=== PATIENT | male | born 1990 | race American Indian/Alaskan Native ===

== ENCOUNTER 2019-05-17 23:45 | Emergency (ER) | payer SELFPAY ==
[2019-05-18 00:48] LABS: Basophils % (Auto) 0.1 % (0.0-1.8); Eosinophils # (Auto) 0.2 K/mm3 (0.0-0.4); Eosinophils % (Auto) 2.8 % (0.0-4.3); Hematocrit 40.7 % (35.5-45.6); Hemoglobin 13.4 gm/dl (11.8-15.2); Lymphocytes # (Auto) 2.1 K/mm3 (1.2-5.4); Lymphocytes % (Auto) 36.6 % (13.4-35.0); Mean Corpuscular HGB Conc 33 % (32-34); Mean Corpuscular Volume 82 fl (84-94); Monocytes # (Auto) 0.6 K/mm3 (0.0-0.8); Monocytes % (Auto) 10.3 % (0.0-7.3); Platelet Count 300 K/mm3 (140-440); Red Blood Count 4.99 M/mm3 (3.65-5.03); Red Cell Distribution Width 14.7 % (13.2-15.2)
[2019-05-18 01:00] LABS: Bilirubin,Urine NEG (Negative); Blood,Urine NEG (Negative); Color,Urine Yellow (Yellow); Protein,Urine <15 mg/dL mg/dL (Negative); Urobilinogen,Urine < 2.0 mg/dL (<2.0)
[2019-05-18 01:03] LABS: Alanine Aminotransferase 24 units/L (7-56); Albumin 4.4 g/dL (3.9-5); BUN/Creatinine Ratio 9; Blood Urea Nitrogen 8 mg/dL (9-20); Calcium 9.2 mg/dL (8.4-10.2); Hemolysis Index 8
[2019-05-18] MEDS ORDERED: LEVSIN SL SL ONE (03:15)
--- NOTE | 2019-05-18 03:20 | Emergency Department Report ---
ED Abdominal Pain HPI - General Chief Complaint: Abdominal Pain Stated Complaint: ABD PAIN Time Seen by Provider: 05/18/19 03:14 Source: patient Mode of arrival: Ambulatory Limitations: No Limitations - History of Present Illness Initial Comments: 29-year-old -[place] male presents to the emergency room for abdominal pain 1 week. Patient denies any nausea vomiting or dysuria. Patient complains of diarrhea 5-6 times a day. Patient reports nothing makes it worse nothing makes it better. Patient reports he tried Pepto-Bismol and Imodium. Patient reports that the pain is crampy and intermittent. Patient denies any past medical history: Takes no medications on a daily basis has no known drug allergies. MD Complaint: abdominal pain Location: diffuse Severity scale (0 -10): 8 Quality: cramping Consistency: constant Improves With: nothing Worsens With: nothing Associated Symptoms: diarrhea - Related Data Previous Rx's Medication Instructions Recorded Last Taken Type Hyoscyamine Subl [Levsin Sl 0.125 0.125 mg SL Q6HR PRN #12 tab 05/18/19 Unknown Rx TAB] Allergies Allergy/AdvReac Type Severity Reaction Status Date / Time No Known Allergies Allergy Unverified 05/18/19 00:09 ED Review of Systems ROS: Stated complaint: ABD PAIN Other details as noted in HPI Comment: All other systems reviewed and negative Gastrointestinal: abdominal pain, diarrhea ED Past Medical Hx - Past Medical History Previous Medical History?: No - Surgical History Past Surgical History?: Yes Hx Appendectomy: Yes Additional Surgical History: Wrist - Social History Smoking Status: Current Some Day Smoker Substance Use Type: None - Medications Home Medications: Home Medications Medication Instructions Recorded Confirmed Last Taken Type Hyoscyamine Subl [Levsin Sl 0.125 0.125 mg SL Q6HR PRN #12 tab 05/18/19 Unknown Rx TAB] ED Physical Exam - General Limitations: No Limitations General appearance: alert, in no apparent distress - Head Head exam: Present: atraumatic, normocephalic - Eye Eye exam: Present: normal appearance - ENT ENT exam: Present: mucous membranes moist - Neck Neck exam: Present: normal inspection - Respiratory Respiratory exam: Present: normal lung sounds bilaterally. Absent: respiratory distress - Cardiovascular Cardiovascular Exam: Present: regular rate, normal rhythm. Absent: systolic murmur, diastolic murmur, rubs, gallop - GI/Abdominal GI/Abdominal exam: Present: soft, normal bowel sounds - Rectal Rectal exam: Present: deferred - Extremities Exam Extremities exam: Present: normal inspection - Back Exam Back exam: Present: normal inspection - Neurological Exam Neurological exam: Present: alert, oriented X3 - Psychiatric Psychiatric exam: Present: normal affect, normal mood - Skin Skin exam: Present: warm, dry, intact, normal color. Absent: rash ED Course Vital Signs 05/18/19 00:08 Temperature 98.7 F Pulse Rate 91 H Respiratory 18 Rate Blood Pressure 122/73 O2 Sat by Pulse 97 Oximetry - Reevaluation(s) Reevaluation #1: 05/18/19 04:30 Patient reports that the Levsin help with his abdominal cramping. ED Medical Decision Making - Lab Data Result diagrams: 05/18/19 00:18 05/18/19 00:18 - Radiology Data Radiology results: report reviewed Patient: HARIKA GRAHAM MR#: [id number] : 1990 Acct:[id number] Age/Sex: 29 / M ADM Date: 05/17/19 Loc: ED Attending Dr: Ordering Physician: YAEL SNOW Date of Service: 05/18/19 Procedure(s): CT abdomen pelvis w con Accession Number(s): [id number] cc: YAEL SNOW CT of the abdomen and pelvis with contrast INDICATION: Mid abdominal pain and diarrhea x1 week COMPARISON: None FINDINGS: The lung bases are clear. The liver, spleen, pancreas, adrenal glands and kidneys all appear normal. No definite gallbladder or biliary tree abnormality. No fluid or adenopathy in the upper abdomen. CT of the pelvis shows no colitis or enteritis. Appendix is not definitely seen. No pelvic fluid or adenopathy. No bowel obstruction is seen. No significant skeletal lesion. IMPRESSION: Negative study. Automated exposure control was utilized to diminish radiation dose. Signer Name: Leodan Izaguirre MD Signed: 05/18/2019 4:41 AM Workstation Name: [id number] Transcribed By: TOMEKA Dictated By: Leodan Izaguirre MD Electronically Authenticated By: Leodan Izaguirre MD Signed Date/Time: 05/18/19 0441 DD/ 0436 TD/TT: - Medical Decision Making 29-year-old -[place] male presents to the emergency room for abdominal pain 1 week. Patient denies any nausea vomiting or dysuria. Patient complains of diarrhea 5-6 times a day. Patient reports nothing makes it worse nothing makes it better. Patient reports he tried Pepto-Bismol and Imodium. Patient reports that the pain is crampy and intermittent. Patient denies any past medical history: Takes no medications on a daily basis has no known drug allergies. CT ordered with contrast. Levsin 0.125. CT of abdomen shows negative study. Patient will be discharged home with a prescription for Levsin and to follow up with a primary care provider. Critical care attestation.: If time is entered above; I have spent that time in minutes in the direct care of this critically ill patient, excluding procedure time. ED Disposition Clinical Impression: Abdominal cramping in left flank Diarrhea Qualifiers: Diarrhea type: unspecified type Qualified Code(s): R19.7 - Diarrhea, unspeci fied Disposition: TO HOME OR SELFCARE Is pt being admited?: No Does the pt Need Aspirin: No Condition: Stable Instructions: Acute Diarrhea (ED), Acute Abdominal Pain (ED) Additional Instructions: CT scan is negative for any acute abnormalities. Please take Levsin as needed for abdominal cramping. Please follow-up with a emergency vehicle operations instructor if this continues. Prescriptions: Hyoscyamine Subl [Levsin Sl 0.125 TAB] 0.125 mg SL Q6HR PRN #12 tab PRN Reason: Pain , Severe (7-10) Referrals: AZEEM WATTERS MD [Primary Care Provider] - 3-5 Days [facility] [Provider Group] - 3-5 Days Forms: Work/School Release Form(ED)
--- NOTE | 2019-05-18 04:45 | Cat Scan Report ---
CT of the abdomen and pelvis with contrast INDICATION: Mid abdominal pain and diarrhea x1 week COMPARISON: None FINDINGS: The lung bases are clear. The liver, spleen, pancreas, adrenal glands and kidneys all appea r normal. No definite gallbladder or biliary tree abnormality. No fluid or adenopathy in the upper ab domen. CT of the pelvis shows no colitis or enteritis. Appendix is not definitely seen. No pelvic fluid or a denopathy. No bowel obstruction is seen. No significant skeletal lesion. IMPRESSION: Negative study. Automated exposure control was utilized to diminish radiation dose. Signer Name: Leodan Izaguirre MD Signed: 05/18/2019 4:41 AM Workstation Name: [id number]
[2019-05-18 06:00] VITALS: BP 114/79
== END 2019-05-18 05:05 | disposition home or self-care (01) ==
LOC: ED 23:45
DX: R10.9 Unspecified abdominal pain (principal); R19.7 Diarrhea, unspecified; F17.200 Nicotine dependence, unspecified, uncomplicated; Z90.49 Acquired absence of other specified parts of digestive tract; Z79.899 Other long term (current) drug therapy
CPT/HCPCS: 36415; 74177; 80053; 81001; 85025; 99284; Q9967